=== PATIENT | female | born 1990 | race Caucasian/White ===

== ENCOUNTER → 2021-02-23 | Outpatient (CLI) | payer OTHER ==
[2021-02-23 13:26] LABS: HEMOGLOBIN 13.7 gm/dl (12.3-15.3); RED BLOOD COUNT 4.42 M/UL (4.00-5.10); WHITE BLOOD COUNT 5.4 K/UL (4.5-11.0)
[2021-02-23 13:39] LABS: BUN/CREATININE RATIO 8 (0-10)
[2021-02-25 05:09] LABS: HBSAG SCREEN Negative (Negative); HEP A AB, IGM Negative (Negative); HEP B CORE AB, IGM Negative (Negative); HEP C VIRUS AB 0.1 (0.0-0.9); HIV SCREEN 4TH GENERATION WRFX Non Reactive (Non Reactive)
[2021-02-26 07:09] LABS: QUANTIFERON MITOGEN VALUE >10.00 IU/mL (.); QUANTIFERON NIL VALUE 0.01 IU/mL (.); QUANTIFERON TB1 AG VALUE 0.03 IU/mL (.); QUANTIFERON TB2 AG VALUE 0.02 IU/mL (.); QUANTIFERON-TB GOLD PLUS Negative (Negative)
== END ==
LOC: LAB 11:47
PROVIDERS: Nurse Practitioner Family
DX: R07.81 Pleurodynia (principal); R61 Generalized hyperhidrosis
CPT/HCPCS: 36415; 71046; 71100; 80053; 80074; 84439; 84443; 85025; 86140; 87040; 87389

== ENCOUNTER → 2021-03-23 | Outpatient (CLI) | payer OTHER | LOC: KOH-I 03-07 14:30 | DX: R51.9 Headache, unspecified (principal); G93.0 Cerebral cysts | CPT/HCPCS: 70551 ==

== ENCOUNTER → 2021-09-11 | Outpatient (CLI) | payer OTHER | LOC: RAD 16:20 | DX: U07.1 COVID-19 (principal) | CPT/HCPCS: 71046 ==

== ENCOUNTER → 2021-12-08 | Outpatient (CLI) | payer OTHER | LOC: MRI 09:30 | DX: R51.9 Headache, unspecified (principal) | CPT/HCPCS: 70553; A9577 ==